=== PATIENT | female | born 1970 | race African-American/Black ===

== ENCOUNTER 2016-11-09 21:50 | Emergency (ER) | payer OTHER ==
--- NOTE | 2016-11-09 22:31 | ER Document Report ---
ED General - General Stated Complaint: CHEST PAIN Time Seen by Provider: 11/09/16 22:22 Notes: Patient is a 46-year-old female presents with complaint of spasming that starts around her shoulder blade and radiates around her left rib cage into her lower chest. Symptoms have been ongoing since . No fevers. She said that she did have some body aches Thursday night before her symptoms started. She denies any vomiting or diarrhea. No history of coronary disease. No family history of coronary disease. Patient herself has a history of breast cancer and therefore underwent a bilateral mastectomy and hysterectomy. She also underwent some chemotherapy and radiation. This was performed in 2011. She is cancer free. She went to [facility] and had an EKG and chest x-ray. She was diagnosed with muscle spasms. She then went to [facility]. She had acupuncture which she said helped a small amount. Spasms again occurred tonight and therefore she called the embolus. A month's gave her 2 mg of Valium and 30 mg of Toradol. She said this helped significantly, but still has some pain. No other complaints at this time. TRAVEL OUTSIDE OF THE [place] IN LAST 30 DAYS: No - Related Data Allergies/Adverse Reactions: hydrocodone bitartrate [From Vicodin] Allergy (Severe, Verified 12/31/13 02:05) N/V iodine [Iodine] Allergy (Severe, Verified 12/31/13 10:21) Itching nalbuphine HCl [From Nubain] Allergy (Severe, Verified 12/31/13 10:21) "Sick to Stomach", Itching Shellfish * [Shellfish] Allergy (Severe, Verified 12/31/13 10:21) Vomiting, Itching oxycodone HCl [From Percocet] Adverse Reaction (Intermediate, Verified 12/31/13 14:01) Nausea Past Medical History - Social History Smoking Status: Unknown if Ever Smoked Frequency of alcohol use: None Drug Abuse: None Family History: Reviewed & Not Pertinent - Past Medical History Cardiac Medical History: Denies: Hx Coronary Artery Disease, Hx Heart Attack, Hx Hypertension Pulmonary Medical History: Denies: Hx Asthma, Hx Bronchitis, Hx COPD, Hx Pneumonia Neurological Medical History: Denies: Hx Cerebrovascular Accident, Hx Seizures Malignancy Medical History: Reports: Hx Breast Cancer - With mastectomy, 2010. Musculoskeltal Medical History: Denies Hx Arthritis Psychiatric Medical History: Reports: Hx Depression Past Surgical History: Reports: Hx Breast Surgery - double mastectomy, Hx Mastectomy - bilateral. Denies: Hx Pacemaker - Immunizations Hx Diphtheria, Pertussis, Tetanus Vaccination: Yes Review of Systems - Review of Systems Notes: My Normal Review Basic REVIEW OF SYSTEMS: CONSTITUTIONAL : Denies fever, chills, or sweats. Denies recent illness. EENT: Denies eye, ear, throat, or mouth pain or symptoms. Denies nasal or sinus congestion. CARDIOVASCULAR: Spasm type pain over the left lower chest. RESPIRATORY: Denies cough, cold, or chest congestion. Denies shortness of breath, difficulty breathing, or wheezing. GASTROINTESTINAL: Denies abdominal pain. Denies nausea, vomiting, or diarrhea. Denies constipation. Last BM: GENITOURINARY: Denies difficulty urinating, painful urination, burning, frequency, or blood in urine. FEMALE GENITOURINARY: Denies vaginal bleeding, abnormal or irregular periods. LMP: MUSCULOSKELETAL: Presently on left upper back that radiates around the left rib cage. SKIN: Denies rash or skin lesions. NEUROLOGICAL: Denies altered mental status or loss of consciousness. Denies headache. Denies weakness or paralysis or loss of use of either side. Denies problems with gait or speech. Denies sensory or motor loss. ALL OTHER SYSTEMS REVIEWED AND NEGATIVE. Physical Exam - Vital signs Vitals: Resp Pulse Ox 18 100 11/09/16 22:24 11/09/16 22:24 - Notes Notes: General Appearance: Well nourished, alert, cooperative, no acute distress, mild obvious discomfort. Vitals: reviewed, See vital signs table. Head: no swelling or tenderness to the head Eyes: PERRL, EOMI, Conjuctiva clear Mouth: No decreasd moisture Lungs: No wheezing, No rales, No rhonci, No accessory muscle use, good air exchange bilaterally. Heart: Normal rate, Regular rythm, No murmur, no rub Back: Pain to palpation along the lower edge of the left scapula. Pain to palpation then continues around the rib cage and into the lower chest. Abdomen: Normal BS, soft, No rigidity, No abdominal tenderness, No guarding, no rebound, no abdominal masses, no organomegaly Extremities: strength 5/5 in all extremities, good pulses in all extremities, no swelling or tenderness in the extremities, no edema. Skin: warm, dry, appropriate color, no rash Neuro: speech clear, oriented x 3, normal affect, responds appropriately to questions. Course - Re-evaluation Re-evalutation: 11/10/16 03:20 After the Skelaxin patient's pain is much improved. She feels much better and has been resting and sleeping. I did obtain a CT scan of her chest without contrast to the history of previous mastectomy and the pain that radiates from her back around to the front for her previous mastectomy was performed. CT scan is normal. I do not suspect PE the patient has no tachypnea, no tachycardia, and the pain is not worse with taking a deep breath. Pain is easily reproducible with palpation and movement and is consistent with most likely muscle spasm. Cardiac workup was negative. Patient will be discharged home but strongly encouraged to return to ER if she has worsening pain, difficulty breathing, or feels unwell. Patient agrees with plan and will be discharged home. Dictation of this chart was performed using voice recognition software; therefore, there may be some unintended grammatical errors. - Vital Signs Vital signs: Temp Pulse Resp BP Pulse Ox 14 99 11/09/16 23:00 11/09/16 23:00 - Laboratory Result Diagrams: 11/09/16 22:37 11/09/16 22:37 Laboratory results interpreted by me: 11/09/16 11/09/16 22:37 22:37 MCH 26.9 L Glucose 118 H - EKG Interpretation by Me Additional EKG results interpreted by me: 11/09/16 22:22 EKG is reviewed and interpreted by me. EKG shows normal sinus rhythm with a rate of [address] segment elevation or depression. No ischemic T-wave inversions. TX interval, QRS duration, QTc intervals are within normal range. No old EKG available for comparison. Discharge - Discharge Clinical Impression: Muscle spasm, Chest wall pain Back pain Qualifiers: Back pain location: thoracic back pain Chronicity: acute Back pain laterality: left Qualified Code(s): M54.6 - Pain in thoracic spine Condition: Good Disposition: HOME, SELF-CARE Additional Instructions: Please follow-up with your family physician in 2-3 days for reevaluation. Continue to use heat pads over the muscles. Take medication as prescribed. Return to the ER if you have difficulty breathing, change in location the pain, or if the pain is intractable. The Skelaxin when taken by itself may make you just mildly sleepy. If you take Valium with the Skelaxin, please do this at night as the combination of the 2 will definitely make you sleepy. Prescriptions: Metaxalone [Skelaxin 800 mg Tablet] 800 mg PO ASDIR PRN #30 tablet PRN Reason: Forms: Return to Work
[2016-11-09] MEDS ORDERED: NORMAL SALINE 1000 ML 1,000 ML IV ONE (22:32)
[2016-11-09] MEDS ORDERED: METAXALONE 800 MG TABLET PO ONE (22:42)
[2016-11-09] MEDS ORDERED: DIAZEPAM INJ 10 MG/2 ML DISP.SYRIN IV ONE (22:44)
[2016-11-09 22:47] LABS: ABSOLUTE EOSINOPHILS # (AUTO) 0.1 10^3/uL (0.0-0.6); ABSOLUTE LYMPHOCYTES (AUTO) 1.4 10^3/uL (0.5-4.7); ABSOLUTE MONOCYTES (AUTO) 0.5 10^3/uL (0.1-1.4); ABSOLUTE NEUT (AUTO) 3.2 10^3/uL (1.7-8.2); BASOPHILS % (AUTO) 0.5 % (0-2); EOSINOPHILS % (AUTO) 2.4 % (0-6); HEMATOCRIT 37.6 % (36.0-47.0); HEMOGLOBIN 12.3 g/dL (12.0-15.5); HGB HCT DIFFERENCE -0.7; LYMPHOCYTES % (AUTO) 27.2 % (13-45); MEAN CORPUSCULAR HEMOGLOBIN 26.9 pg (27.0-33.4); MEAN CORPUSCULAR HGB CONC 32.7 g/dL (32.0-36.0); MEAN CORPUSCULAR VOLUME 82 fl (80-97); MONOCYTES % (AUTO) 9.1 % (3-13); RED BLOOD COUNT 4.58 10^6/uL (3.72-5.28); RED CELL DISTRIBUTION WIDTH 13.5 % (11.5-14.0); SEGMENTED NEUTROPHILS % (AUTO) 60.8 % (42-78); WHITE BLOOD COUNT 5.2 10^3/uL (4.0-10.5)
[2016-11-09 23:02] LABS: ALANINE AMINOTRANSFERASE 24 U/L (9-52); ALBUMIN 3.9 g/dL (3.5-5.0); ALKALINE PHOSPHATASE 69 U/L (38-126); ANION GAP 11 (5-19); ASPARTATE AMINO TRANSFERASE 16 U/L (14-36); BILIRUBIN,DIRECT 0.4 mg/dL (0.0-0.4); BILIRUBIN,TOTAL 0.4 mg/dL (0.2-1.3); BLOOD UREA NITROGEN 16 mg/dL (7-20); CALCIUM 9.7 mg/dL (8.4-10.2); CARBON DIOXIDE 25 mmol/L (22-30); CHLORIDE 106 mmol/L (98-107); CREATINE KINASE 114 U/L (30-135); GLUCOSE 118 mg/dL (75-110); POTASSIUM 3.9 mmol/L (3.6-5.0); SODIUM 142.1 mmol/L (137-145); TOTAL PROTEIN 6.8 g/dL (6.3-8.2)
[2016-11-09 23:14] LABS: CREATINE KINASE MB 0.43 ng/mL (<4.55)
[2016-11-09 23:15] LABS: TROPONIN I < 0.012 ng/mL
--- NOTE | 2016-11-10 01:01 | RADIOLOGY REPORT (SQ) ---
EXAM DESCRIPTION: CHEST SINGLE VIEW COMPLETED DATE/TIME: 11/10/2016 12:18 am REASON FOR STUDY: chest pain COMPARISON: 10.18.14. 10/15/2013. EXAM PARAMETERS: NUMBER OF VIEWS: One view. TECHNIQUE: Single frontal radiographic view of the chest acquired. RADIATION DOSE: NA LIMITATIONS: None. FINDINGS: LUNGS AND PLEURA: Moderate lung volumes. MEDIASTINUM AND HILAR STRUCTURES: No masses. Contour normal. HEART AND VASCULAR STRUCTURES: Heart normal in size. Normal vasculature. BONES: No acute findings. HARDWARE: Right axillary clips. Mediastinal clips. OTHER: No other significant finding. IMPRESSION: Moderate lung volumes. TECHNICAL DOCUMENTATION: JOB ID: [id number]
--- NOTE | 2016-11-10 03:02 | RADIOLOGY REPORT (SQ) ---
EXAM DESCRIPTION: CT CHEST WITHOUT COMPLETED DATE/TIME: 11/10/2016 2:19 am REASON FOR STUDY: pain around left rib cage. History of mastectomy COMPARISON: None. TECHNIQUE: CT scan performed of the chest without intravenous contrast. Images reviewed with lung, soft tissue and bone windows. Reconstructed coronal and sagittal MPR images reviewed. All images st ored on PACS. All CT scanners at this facility use dose modulation, iterative reconstruction, and/or weight based d osing when appropriate to reduce radiation dose to as low as reasonably achievable (ALARA). [facility]: Dose Right [facility]: CareDose [facility]: Dose Right [facility]: Teradose 4D [facility]: [employer] RADIATION DOSE: Up-to-date CT equipment and radiation dose reduction techniques were employed. CTDIv ol: 25.6 mGy. DLP: 868 mGy-cm. mGy. LIMITATIONS: No technical limitations. FINDINGS: LUNGS AND PLEURA: No masses, infiltrates, pneumothorax. No pleural effusions, calcificati ons. Small atelectasis or scar bilateral lung bases. HILAR AND MEDIASTINAL STRUCTURES: No identified masses or abnormal nodes. No obvious aneurysm. HEART AND VASCULAR STRUCTURES: No aneurysm. No pericardial effusion. UPPER ABDOMEN: Several low-attenuation, likely benign hepatic lesions measure up to 1.1 cm each, cons istent with prior MRI, 07/19/2015. With Limited exam. THYROID AND OTHER SOFT TISSUES: No masses. No adenopathy. BONES: No significant finding. HARDWARE: Surgical clips of the right axilla, deep left paracentral chest wall. OTHER: Right mastectomy. IMPRESSION: No acute cardiopulmonary findings. Right mastectomy. TECHNICAL DOCUMENTATION: JOB ID: [id number] Quality ID # [id number]: Final reports with documentation of one or more dose reduction techniques (e.g., Au tomated exposure control, adjustment of the mA and/or kV according to patient size, use of iterative reconstruction technique) 2010 [employer]- All Rights Reserved
[2016-11-10 03:49] VITALS: BP 104/60
--- NOTE | 2016-11-10 23:22 | EKG REPORT ---
SEVERITY:- OTHERWISE NORMAL ECG - SINUS RHYTHM LEFT AXIS DEVIATION : Confirmed by: Yu Singh 10-Nov-2016 23:22:04
== END 2016-11-10 03:30 | disposition home or self-care (01) ==
LOC: ER 21:50
DX: R07.89 Other chest pain (principal); M54.6 Pain in thoracic spine; M62.838 Other muscle spasm; R07.81 Pleurodynia; M79.1 Myalgia; I25.10 Atherosclerotic heart disease of native coronary artery without angina pectoris; Z79.899 Other long term (current) drug therapy
CPT/HCPCS: 93005; 99285; 96361; 96374; 36415; 82553; 82550; 83735; 85025; 80053; 84484; 71010; 71250; 93010; J3360; J3490

== ENCOUNTER → 2017-03-12 | Outpatient (CLI) | payer OTHER ==
[2017-03-12 09:34] LABS: ALANINE AMINOTRANSFERASE 43 U/L (9-52); ALBUMIN 4.1 g/dL (3.5-5.0); ALKALINE PHOSPHATASE 65 U/L (38-126); ANION GAP 8 (5-19); ASPARTATE AMINO TRANSFERASE 24 U/L (14-36); BILIRUBIN,DIRECT 0.3 mg/dL (0.0-0.4); BILIRUBIN,TOTAL 0.4 mg/dL (0.2-1.3); BLOOD UREA NITROGEN 13 mg/dL (7-20); CALCIUM 9.6 mg/dL (8.4-10.2); CARBON DIOXIDE 31 mmol/L (22-30); CHLORIDE 104 mmol/L (98-107); CHOLESTEROL 217.83 mg/dL (0-200); CREATINE KINASE 188 U/L (30-135); GLUCOSE 98 mg/dL (75-110); POTASSIUM 4.4 mmol/L (3.6-5.0); SODIUM 143.1 mmol/L (137-145); TOTAL PROTEIN 7.1 g/dL (6.3-8.2); TRIGLYCERIDES 87 mg/dL (<150)
[2017-03-12 09:45] LABS: DIRECT LDL 132 mg/dL (<100)
== END ==
LOC: OD 08:13
PROVIDERS: ATTEND Internal Medicine Cardiovascular Disease
DX: Z01.812 Encounter for preprocedural laboratory examination (principal); I25.10 Atherosclerotic heart disease of native coronary artery without angina pectoris; R25.2 Cramp and spasm
CPT/HCPCS: 36415; 80048; 80061; 80076; 82550

== ENCOUNTER → 2017-04-16 | Outpatient (CLI) | payer OTHER ==
--- NOTE | 2017-04-16 08:48 | WOMENS IMAGING REPORT ---
EXAM DESCRIPTION: U/S EXTREMITY NONVASCULAR COMP COMPLETED DATE/TIME: 04/16/2017 8:33 am REASON FOR STUDY: LYMPHEDEMA, NOTEELSEWHERE CLASSIFIED;I89.0 COMPARISON: CT chest 11/10/2016 TECHNIQUE: Ultrasound exam of the upper chest, left axilla, and left upper arm was performed, includ ing color flow and grayscale images. Patient has had a bilateral mastectomy with reconstruction and has a feeling of fullness in the upper chest axilla, and left upper arm. LIMITATIONS: None. FINDINGS: In the left axilla, an 8 x 3 mm lymph node is identified. No worrisome features. No sero ma or bulky adenopathy in the left axilla. Ultrasound of the anterior chest wall in area swelling is unremarkable. Ultrasound of the left upper chest is unremarkable. IMPRESSION: No focal findings at ultrasound. TECHNICAL DOCUMENTATION: JOB ID: [id number] [employer]- All Rights Reserved
== END ==
LOC: WI 08:39
PROVIDERS: ATTEND Physician Assistant Medical
DX: I89.0 Lymphedema, not elsewhere classified (principal); R22.2 Localized swelling, mass and lump, trunk
CPT/HCPCS: 76881